=== PATIENT | female | born 1925 | race Caucasian/White ===

== ENCOUNTER 2016-10-19 10:57 | Inpatient (IN) | payer OTHER, MEDICARE ==
[~2016-10-19] VITALS: Ht 157.5 cm; Wt 57.7 kg
[~2016-10-19 10:57] MED LIST: AMOX TR-K CLV1 EAC4 PO; AMOXICILLIN500 MG PO; ASPIR-LOW81 MG PO; LOPRESSOR100 M1 PO; LOSARTAN-HCTZ1 EAC2 PO; Ocean Nasal 0.65% BOTH NARES; PRAVASTATIN SOD20 MG PO; TERAZOSIN HCL2 MG PO; TYLENOL WITH C1 EACH PO
[2016-10-19 11:36] LABS: HEMATOCRIT 33.8 % (36.0-46.0); MCH 29.4 PG (29.0-34.0); MCHC 33.4 G/DL (30.0-36.0); MCV 87.8 FL (83-99); MEAN PLAT.VOLUME 9.8 uM^3 (9.5-12.4); PLATELET COUNT 285 K/uL (156-360); RBC DIS.WIDTH-CV 12.9 % (11.8-14.6); RBC DIS.WIDTH-SD 41.4 % (39-53); RED BLOOD COUNT 3.85 M/uL (3.80-5.20); WHITE BLOOD COUNT 8.3 K/uL (4.1-10.2)
[2016-10-19 11:43] LABS: PROTHROMBIN TIME 11.1 SEC (10.2-12.9)
[2016-10-19 11:45] LABS: PTT 25.7 SEC (25-37)
[2016-10-19 11:49] LABS: CHLORIDE 99 mEq/L (99-109); SODIUM 137 mEq/L (136-147)
[2016-10-19 11:50] LABS: GLUCOSE 114 mg/dL (70-99)
[2016-10-19 11:52] LABS: ANION GAP 15 MEQ/L (2-14)
[2016-10-19 11:54] LABS: GFR ESTIMATE (CALCULATED) 38 mL/min/
[2016-10-19 11:55] LABS: UREA NITROGEN (BUN) 34 mg/dL (9-23)
[2016-10-19 18:26] VITALS: BP 134/63
[2016-10-19 19:22] VITALS: BP 113/56
[2016-10-19 22:07] LABS: METH RESISTANT S AUREUS PCR NEGATIVE (NEGATIVE); PROBE CHECK PASS; SPECIMEN PROCESSING CONTROL PASS
[2016-10-20] VITALS (7 sets, daily range): BP systolic 104–139; BP diastolic 49–60
[2016-10-20] MEDS ORDERED: METOPROLOL TAR100 MG PO (01:40)
[2016-10-20] MEDS ORDERED: HYZAAR 100-21 TABLET PO (01:42)
[2016-10-20] MEDS ORDERED: PRAVACHOL20 MG PO (01:44)
[2016-10-20] MEDS ORDERED: VITAMIN D31000 UNI2 PO (01:49)
[2016-10-20] MEDS ORDERED: NIFEDIPINE ER30 MG PO (01:49)
[2016-10-20] MEDS ORDERED: MECLIZINE HCL12.5 M1 PO (01:52)
[2016-10-20 13:21] LABS: HEMATOCRIT 25.5 % (36.0-46.0); MCV 88.9 FL (83-99)
[2016-10-20 13:42] LABS: ANION GAP 6 MEQ/L (2-14); CHLORIDE 102 MEQ/L (99-109); POTASSIUM 3.5 MEQ/L (3.7-5.4); SAMPLE HEMOLYSIS CHECK 0; SAMPLE ICTERIC CHECK 0; SAMPLE LIPEMIA CHECK 0; SODIUM 137 MEQ/L (136-147)
[2016-10-20 13:47] LABS: GFR ESTIMATE (CALCULATED) 56 mL/min/; GLUCOSE 193 mg/dL (70-99); UREA NITROGEN (BUN) 23 mg/dL (9-23)
[2016-10-21] VITALS (7 sets, daily range): BP systolic 99–156; BP diastolic 49–68
[2016-10-21 07:01] LABS: HEMATOCRIT 24.7 % (36.0-46.0); MCH 30.2 PG (29.0-34.0); MCV 88.8 FL (83-99); PLATELET COUNT 215 K/uL (156-360); RBC DIS.WIDTH-CV 13.1 % (11.8-14.6); RBC DIS.WIDTH-SD 43.1 % (39-53); WHITE BLOOD COUNT 9.9 K/uL (4.1-10.2)
[2016-10-21 07:02] LABS: RED BLOOD COUNT 2.78 M/uL (3.80-5.20)
[2016-10-22 03:44] VITALS: BP 128/57
[2016-10-22 07:26] LABS: HEMATOCRIT 24.5 % (36.0-46.0); MCH 29.2 PG (29.0-34.0); MCHC 32.7 G/DL (30.0-36.0); MCV 89.4 FL (83-99); MEAN PLAT.VOLUME 11.2 uM^3 (9.5-12.4); PLATELET COUNT 202 K/uL (156-360); RBC DIS.WIDTH-CV 13.3 % (11.8-14.6); RBC DIS.WIDTH-SD 43.8 % (39-53); RED BLOOD COUNT 2.74 M/uL (3.80-5.20); WHITE BLOOD COUNT 10.8 K/uL (4.1-10.2)
[2016-10-22 07:39] VITALS: BP 130/56
[2016-10-22 07:49] LABS: ANION GAP 7 MEQ/L (2-14); CHLORIDE 100 MEQ/L (99-109); GFR ESTIMATE (CALCULATED) > 59 mL/min/; POTASSIUM 3.2 MEQ/L (3.7-5.4); SAMPLE HEMOLYSIS CHECK 0; SAMPLE ICTERIC CHECK 0; SAMPLE LIPEMIA CHECK 0; SODIUM 137 MEQ/L (136-147); UREA NITROGEN (BUN) 13 mg/dL (9-23)
[2016-10-22 07:50] LABS: GLUCOSE 102 mg/dL (70-99)
[2016-10-22] MEDS ORDERED: POLYETHYLENE GL17 GM PO (08:45)
[2016-10-22] MEDS ORDERED: TYLENOL REGULA325 MG PO (08:45)
[2016-10-22] MEDS ORDERED: DOCUSATE SODIU100 MG PO (08:45)
[2016-10-22] MEDS ORDERED: BISACODYL5 MG PO (08:45)
[2016-10-22] MEDS ORDERED: LOVENOX40 MG/0.4 SC (08:46)
[2016-10-22] MEDS ORDERED: HYDROCODON-ACE1 EAC7 PO (08:46)
[2016-10-22 11:16] VITALS: BP 112/53
== END 2016-10-22 14:30 | DRG 481 ==
LOC: EME 10:57 → EDOF 16:47 → 3EAST 16:47 → ENRESERV 16:49 → 3EAST 18:12
PROVIDERS: Emergency Medicine; Internal Medicine; Orthopaedic Surgery; Student in an Organized Health Care Education/Training Program
PROC: 0QS806Z Reposition Right Femoral Shaft with Intramedullary Internal Fixation Device, Open Approach (ICD-10-PCS; principal; 2016-10-19)
DX: S72.21XA Displaced subtrochanteric fracture of right femur, initial encounter for closed fracture (principal); N17.9 Acute kidney failure, unspecified; D62 Acute posthemorrhagic anemia; W01.0XXA Fall on same level from slipping, tripping and stumbling without subsequent striking against object, initial encounter; E78.5 Hyperlipidemia, unspecified; E87.6 Hypokalemia; I95.9 Hypotension, unspecified; I12.9 Hypertensive chronic kidney disease with stage 1 through stage 4 chronic kidney disease, or unspecified chronic kidney disease; N18.3 Chronic kidney disease, stage 3 (moderate); Z79.82 Long term (current) use of aspirin; Z91.81 History of falling; Z87.891 Personal history of nicotine dependence
CPT/HCPCS: 71010; 72125; 73501; 73502; 76000; 80048; 85014; 85018; 85027; 85610; 85730; 86850; 86900; 86901; 87641; 93005; 97530 GO; 99281; 99284; C1713; J0690; J1650; J2250; J2270; J2405; J3010; J7030

== ENCOUNTER 2017-05-16 11:14 | Emergency (ER) | payer OTHER, MEDICARE ==
[~2017-05-16] VITALS: Ht 157.5 cm; Wt 57.2 kg
[~2017-05-16 11:14] MED LIST changes: +BISACODYL5 MG PO; +DOCUSATE SODIU100 MG PO; +HYDROCODON-ACE1 EAC7 PO; +HYZAAR 100-21 TABLET PO; +LOVENOX40 MG/0.4 SC; +MECLIZINE HCL12.5 M1 PO; +METOPROLOL TAR100 MG PO; +NIFEDIPINE ER30 MG PO; +POLYETHYLENE GL17 GM PO; +PRAVACHOL20 MG PO; +TYLENOL REGULA325 MG PO; +VITAMIN D31000 UNI2 PO
[2017-05-16] MEDS ORDERED: VALACYCLOVIR1000 MG PO (11:42)
[2017-05-16] MEDS ORDERED: BACTRIM,SEPT1 TABLET PO (11:42)
[2017-05-16] MEDS ORDERED: KEFLEX500 MG PO (11:42)
[2017-05-16] MEDS ORDERED: PREDNISONE50 MG PO (11:42)
[2017-05-16 13:59] VITALS: BP 174/79
== END 2017-05-16 14:00 | disposition home or self-care (01) ==
LOC: EME 11:14
DX: B02.9 Zoster without complications (principal); R50.9 Fever, unspecified; I10 Essential (primary) hypertension; Z87.891 Personal history of nicotine dependence
CPT/HCPCS: 99281; 99283; J7512